=== PATIENT | male | born 1945 | race Caucasian/White ===

== ENCOUNTER → 2023-02-05 09:50 | Outpatient (CLI) | payer MEDICARE, SELFPAY ==
--- NOTE | 2023-02-05 09:52 | DI.RAD.S_ITS ---
PROCEDURE: XR LUMBAR SPINE MIN 4V INDICATIONS: BACK PAIN TECHNIQUE: 5 views of the lumbar spine were acquired, including bilateral oblique views. COMPARISON: None. FINDINGS: Bones: 5 nonrib-bearing vertebrae are present. Grade 1 anterolisthesis of L5 on S1 secondary to pars defects. Mild disc height loss at all levels. Facet arthrosis L4 through S1. Soft tissues: Overlying bowel gas pattern is normal. No suspicious soft tissue calcifications. Oblique images: No pars defects. IMPRESSION: No acute, displaced fracture or traumatic subluxation. Mild disc height loss at all levels. Lower lumbar facet arthrosis. Dictated by: Kemar Saunders M.D. on 02/05/2023 at 10:48 Approved by: Kemar Saunders M.D. on 02/05/2023 at 10:49
== END ==
PROVIDERS: PCP Internal Medicine; Referring Provider Physical Medicine & Rehabilitation; Visit Provider Physical Medicine & Rehabilitation
DX: M47.816 Spondylosis without myelopathy or radiculopathy, lumbar region (principal); M47.817 Spondylosis without myelopathy or radiculopathy, lumbosacral region; M43.17 Spondylolisthesis, lumbosacral region; M51.26 Other intervertebral disc displacement, lumbar region; M21.372 Foot drop, left foot; M54.9 Dorsalgia, unspecified; Z90.79 Acquired absence of other genital organ(s); Z92.3 Personal history of irradiation
CPT/HCPCS: 72110; 99214

== ENCOUNTER → 2023-02-16 10:28 | Outpatient (CLI) | payer MEDICARE, SELFPAY ==
--- NOTE | 2023-02-16 10:29 | DI.MRI.S_ITS ---
PROCEDURE: MR LUMBAR SPINE WO CON INDICATIONS: left foot drop, hx of prostate ca TECHNIQUE: Noncontrast sagittal T1 spin echo and T2 fast echo, sagittal STIR, and T2 fast spin echo through the lumbar spine. In cases with scoliosis, additional coronal T2 fast spin echo may be performed. COMPARISON: [facility], CR, XR LUMBAR SPINE MIN 4V, 02/05/2023, 10:01. [facility], MR, MR LUMBAR SPINE WITH/WITHOUT CONTRAST, 11/10/2020, 9:48. [facility], MR, MR LUMBAR SPINE WITH/WITHOUT CONTRAST, 09/23/2019, 16:31. FINDINGS: Image quality: Excellent. Alignment and Curvature: There is normal bony alignment. Bone Marrow: Numerous foci of abnormal marrow signal can be seen, with increased T1 weighted signal and increased T2 weighted signal, with decreased STIR signal. This can be seen from C4 through the sacrum, and is most compatible with fatty metaplasia. Within the posterior aspect of the L5 level, there is a focus seen that demonstrates decreased signal on T1 weighted T2 weighted imaging increased signal on STIR imaging, which is similar to 202. No acute vertebral body compression fractures. Spinal Cord: Conus medullaris terminates at the L1 level. Visualized cord demonstrates normal signal and size. Paraspinous Soft Tissues: No paravertebral masses. T12-L1: Normal appearance. L1-L2: Normal appearance. L2-L3: The disc height is well-preserved. Loss of disc signal is seen at this level. Mild to moderate disc osteophyte complex is seen. Moderate facet joint hypertrophy is seen. Moderate bilateral neural foraminal narrowing is seen. Moderate central canal narrowing is seen. These imaging findings have progressed compared to the prior study. L3-L4: Mild loss of disc height is seen. Loss of disc signal is seen. Moderate generalized disc bulge is seen. There is a mild superimposed central disc extrusion, with mild superior migration of disc material. Moderate facet joint hypertrophy is seen. Fluid is seen within the facet joints themselves. At least moderate bilateral neural foraminal narrowing can be seen. There is a degree of compression seen upon the exiting nerve roots. Moderate to severe central canal narrowing can be seen, as on series 5, image 21. These degenerative changes are worse than in 2021. L4-L5: The disc height is well-preserved. Loss of disc signal is seen at this level. Moderate generalized disc bulge is seen. There is a superimposed central disc protrusion. Moderate facet joint hypertrophy is seen. Associated hypertrophy of the ligamentum flavum can be seen. Moderate to severe bilateral neural foraminal narrowing can be seen, left worse than right. There is a degree of compression seen upon the exiting nerve roots. At least moderate central canal narrowing is seen. These imaging findings have progressed compared to the prior study. L5-S1: The disc height is well-preserved. Loss of disc signal is seen at this level. Moderate disc bulge is seen, which is eccentric to the left. Moderate facet joint hypertrophy is seen. Moderate bilateral neural foraminal narrowing is seen. Mild central When comparison is made with the prior images, these findings are similar. IMPRESSION: Multiple levels of lumbar spine degenerative change are seen, which are overall worst compared to 08/23/2020. Stable abnormal lesion along the posterior aspect of the L5 level, which is not significantly changed compared to 202 and may be related to a focus of metastatic disease. 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 Dictated by: Obi Davey M.D. on 02/17/2023 at 14:11 Approved by: Obi Davey M.D. on 02/17/2023 at 14:16
== END ==
PROVIDERS: PCP Internal Medicine; Referring Provider Physical Medicine & Rehabilitation; Visit Provider Physical Medicine & Rehabilitation
DX: M43.17 Spondylolisthesis, lumbosacral region (principal); M21.379 Foot drop, unspecified foot; M47.816 Spondylosis without myelopathy or radiculopathy, lumbar region; M47.817 Spondylosis without myelopathy or radiculopathy, lumbosacral region; M89.9 Disorder of bone, unspecified
CPT/HCPCS: 72148

== ENCOUNTER 2023-04-15 12:30 | Outpatient (CLI) | payer MEDICARE, SELFPAY ==
[2023-04-15] VITALS (8 sets, daily range): BP systolic 108–135; BP diastolic 61–74; PULSE 40–59; RESP 11–18; TEMP 36.1; O2SAT 96–100
--- NOTE | 2023-04-15 12:31 | DI.RAD.S_ITS ---
PROCEDURE: PAIN L/S TRANSFORAMINAL INJECT INDICATIONS: SPONDYLOSIS COMPARISON: None. FINDINGS: Fluoroscopic spot filming was performed to verify placement of spinal needles at the left L5-S1 neural foramen level(s), as labeled on the films. Appropriate location(s) of the needle tip(s) was confirmed by injection of iodinated contrast. IMPRESSION: Access needle at the left L4-L5 neural foramen for transforaminal epidural steroid injection. Dictated by: Michelle Mike MD, PhD on 04/15/2023 at 13:57 Approved by: Michelle Mike MD, PhD on 04/15/2023 at 13:57
[2023-04-15] MEDS: MIDAZOLAM 2 MG/2 ML VIAL 1 MG IV (13:35)
[2023-04-15] MEDS: BETAMETHASONE 30 MG/5 ML MDV 6 MG INJ (13:40)
[2023-04-15] MEDS: DEXAMETHASONE 10 MG/ML VIAL INJ (13:41)
[2023-04-15] MEDS: IOPAMIDOL 15 ML VIAL 3 ML INJ (13:41)
[2023-04-15] MEDS: BUPIVACAINE 0.25% (PF) VIAL 2 ML INJ (13:42)
--- NOTE | 2023-04-15 13:48 | P.PCN_ITS ---
Date/Time/Diagnoses Date of procedure: 04/15/23 Time of procedure: 13:48 Pre-procedure diagnosis: 1. FORAMINAL STENOSIS WITH LE SYMPTOMS Post-procedure diagnosis: same Procedure Notes Procedure: 1. FLUOROSCOPICALLY GUIDED CONTRAST CONTROLLED TRANSFORAMINAL EPIDURAL STEROID INJECTION - Left L5/S1 Indications: Stefano is referred by Dr. Chandler for treatment of Foraminal Stenosis with Left LE Symptoms Physician: Marco Antonio Valdes Total Fluoroscopy time (seconds): 10 Total sedation minutes: 11 Complications: none Procedure in detail & Post-procedure care: FINDINGS Foraminal Nerve Root Compression secondary to disc disease and facet hypertrophy DESCRIPTION OF PROCEDURE Following review of allergy and review of potential side effects and complications, including, but not necessarily limited to, infection, allergic reaction, local tissue breakdown, stroke, temporary or permanent nerve injury, paralysis, and possible , the patient indicated that the patient understood and agreed to proceed. An informed consent document was signed by the patient, witnessed by a nurse, and placed in the patient's chart. Additionally, other treatment options including medications, modalities, and physical therapy were reviewed with the patient. After review of previous anaesthesic history and IV conscious sedation the patient was deemed safe to proceed with today?s procedure with IV conscious sedation as ASA class II designation. Safety time-out was performed to confirm patient ID, procedure to be performed and site of procedure. IV sedation was accomplished with a combination of 1mg of Versed was administered by the RN after DO order, titrated to patient comfort during the course of the procedure while the patient remained responsive to all verbal commands In the prone position following sterile prep and drape of the lumbar region, the Left L5/S1 posterior neuroforamen was identified fluoroscopically. The skin was anesthetized via a 25-gauge 1.5-inch needle with 1% lidocaine solution. At this point, a 25-gauge 3.5-inch spinal needle was atraumatically introduced and advanced under fluoroscopic guidance through the posterior Left L5/S1 neuroforamen to approximately the anterior aspect of the canal. Depth was confirmed on lateral view. Following negative aspiration, injection of approximately 1.5cc of Isovue 200 under live fluoroscopy in the AP view confir med excellent flow along the nerve root, into the epidural space without vascular or intrathecal uptake observed Radiological data, including multiple fluoroscopic views of the lumbosacral spine, reveal a spinal needle at the left L5/S1 posterior neuroforamen. Subsequent views show flow of contrast material flowing superiorly and inferiorly along the nerve root confirming epidural flow. Subsequently, a test dose of 1.5 cc of 1% lidocaine solution was administered and patient was observed for two minutes for signs or symptoms of complications, including abdominal pain, shortness of breath, bilateral upper or lower extremity weakness, nausea and vomiting, prior to steroid injection. At this point, a total of 2cc or 10mg of dexamethasone and 6mg of betamethasone was injected without incident. The procedure tolerated the procedure well without signs or symptoms of complications prior to transfer to the recovery area continued monitoring without incident. The patient was then transferred to the recovery area where they were observed for an appropriate time after the injection. The patient reported a VAS score of 7 prior to the procedure and a post-procedure VAS of 0. POST OP INSTRUCTIONS The patient was provided a Pain Log to continue to record their response to the target-specific procedure prior to follow-up visit with their referring phy sician. Additionally, specific post-injection care instructions and a contact number to our office were provided if concerns arise regarding possible complications associated with the procedure are suspected.
== END 2023-04-15 14:11 | disposition home or self-care (01) ==
PROVIDERS: PCP Internal Medicine; Referring Provider Physical Medicine & Rehabilitation; Visit Provider Physical Medicine & Rehabilitation
DX: M48.07 Spinal stenosis, lumbosacral region (principal); M51.17 Intervertebral disc disorders with radiculopathy, lumbosacral region; M47.27 Other spondylosis with radiculopathy, lumbosacral region
CPT/HCPCS: 64483; 99152; J0702; J1100; J2250; J3490

== ENCOUNTER 2023-08-05 10:04 | Outpatient (CLI) | payer MEDICARE, SELFPAY ==
[2023-08-05] VITALS (8 sets, daily range): BP systolic 91–115; BP diastolic 59–74; PULSE 45–52; RESP 12–18; TEMP 36.4; O2SAT 95–100
--- NOTE | 2023-08-05 10:45 | DI.RAD.S_ITS ---
PROCEDURE: PAIN L/S TRANSFORAMINAL INJECT INDICATIONS: SPONDYLOSIS COMPARISON: [facility], , PAIN L/S TRANSFORAMINAL INJECT, 04/15/2023, 13:38. FINDINGS: Fluoroscopic spot filming was performed to verify placement of spinal needles at the left L4-L5 level(s), as labeled on the films. Appropriate location(s) of the needle tip(s) was confirmed by injection of iodinated contrast. IMPRESSION: Needle placement at left L4-L5 level with contrast injection. Dictated by: Thuy Shafer M.D. on 08/05/2023 at 11:49 Approved by: Thuy Shafer M.D. on 08/05/2023 at 11:50
[2023-08-05] MEDS: MIDAZOLAM 2 MG/2 ML VIAL 1 MG IV (11:05)
[2023-08-05] MEDS: iopamidoL 15 ML VIAL 3 ML INJ (11:07)
[2023-08-05] MEDS: BETAMETHASONE 30 MG/5 ML MDV 6 MG INJ (11:08)
[2023-08-05] MEDS: DEXAMETHASONE 10 MG/ML VIAL INJ (11:08)
[2023-08-05] MEDS: BUPIVACAINE 0.25% (PF) VIAL 2 ML INJ (11:08)
--- NOTE | 2023-08-05 11:23 | P.PCN_ITS ---
Date/Time/Diagnoses Date of procedure: 08/05/23 Time of procedure: 11:23 Pre-procedure diagnosis: 1. FORAMINAL STENOSIS WITH LE SYMPTOMS Post-procedure diagnosis: same Procedure Notes Procedure: 1. FLUOROSCOPICALLY GUIDED CONTRAST CONTROLLED TRANSFORAMINAL EPIDURAL STEROID INJECTION - LEFT L4/5 Indications: Stefano is referred by Dr. Chandler for treatment of Foraminal Stenosis with Left LE Symptoms Physician: Marco Antonio Valdes Total Fluoroscopy time (seconds): 12 Total sedation minutes: 10 Complications: none Procedure in detail & Post-procedure care: FINDINGS Foraminal Nerve Root Compression secondary to disc disease and facet hypertrophy DESCRIPTION OF PROCEDURE Following review of allergy and review of potential side effects and complications, including, but not necessarily limited to, infection, allergic reaction, local tissue breakdown, stroke, temporary or permanent nerve injury, paralysis, and possible , the patient indicated that the patient understood and agreed to proceed. An informed consent document was signed by the patient, witnessed by a nurse, and placed in the patient's chart. Additionally, other treatment options including medications, modalities, and physical therapy were reviewed with the patient. After review of previous anaesthesic history and IV conscious sedation the patient was deemed safe to proceed with today?s procedure with IV conscious sedation as ASA class II designation. Safety time-out was performed to confirm patient ID, procedure to be performed and site of procedure. IV sedation was accomplished with a combination of 1mg of Versed administered by the RN after DO order, titrated to patient comfort during the course of the procedure while the patient remained responsive to all verbal commands In the prone position following sterile prep and drape of the lumbar region, the left L4/5 posterior neuroforamen was identified fluoroscopically. The skin was anesthetized via a 25-gauge 1.5-inch needle with 1% lidocaine solution. At this point, a 25-gauge 3.5-inch spinal needle was atraumatically introduced and advanced under fluoroscopic guidance through the posterior left L4/5 neuroforamen to approximately the anterior aspect of the canal. Depth was confirmed on lateral view. Following negative aspiration, injection of approximately 1.5 cc of Isovue 200 under live fluoroscopy in the AP view confirmed excellent flow along the nerve root, into the epidural space without vascular or intrathecal uptake observed Radiological data, including multiple fluoroscopic views of the lumbosacral spine, reveal a spinal needle at the left L4/5 posterior neuroforamen. Subsequent views show flow of contrast material flowing superiorly and inferiorly along the nerve root confirming epidural flow. Subsequently, a test dose of 1.5 cc of 1% lidocaine solution was administered and patient was observed for two minutes for signs or symptoms of complications, including abdominal pain, shortness of breath, bilateral upper or lower extremity weakness, nausea and vomiting, prior to steroid injection. At this point, a total of 2cc or 10mg of dexamethasone and 6mg of betamethasone was injected without incident. The procedure tolerated the procedure well without signs or symptoms of complications prior to transfer to the recovery area continued monitoring without incident. The patient was then transferred to the recovery area where they were observed for an appropriate time after the injection. The patient reported a VAS score of 7 prior to the procedure and a post- procedure VAS of 0. POST OP INSTRUCTIONS The patient was provided a Pain Log to continue to record their response to the target-specific procedure prior to follow-up visit with their referring physician. Additionally, specific post-injection care instructions and a contact number to our office were provided if concerns arise regarding possible complications associated with the procedure are suspected.
--- NOTE | 2023-08-06 11:11 | PC.NURSE ---
Procedure follow up call: Spoke with Dom @ 1111 - doing well, he was out for a hike. No questions or concerns. Follow up appointment already scheduled. Encouraged to call the clinic for any issues that arise.
== END 2023-08-05 11:47 | disposition home or self-care (01) ==
PROVIDERS: PCP Internal Medicine; Referring Provider Physical Medicine & Rehabilitation; Visit Provider Physical Medicine & Rehabilitation
DX: M48.061 Spinal stenosis, lumbar region without neurogenic claudication (principal); M51.16 Intervertebral disc disorders with radiculopathy, lumbar region; M47.26 Other spondylosis with radiculopathy, lumbar region
CPT/HCPCS: 64483; 99152; J0702; J1100; J2250; J3490

== ENCOUNTER 2023-11-25 09:13 | Outpatient (CLI) | payer MEDICARE, SELFPAY ==
[2023-11-25] VITALS (8 sets, daily range): BP systolic 91–108; BP diastolic 51–69; PULSE 45–52; RESP 10–16; TEMP 36.2; O2SAT 94–100
--- NOTE | 2023-11-25 09:45 | DI.RAD.S_ITS ---
PROCEDURE: PAIN L/S TRANSFORAMINAL INJECT INDICATIONS: Left L4/5 TFESI COMPARISON: [facility], , PAIN L/S TRANSFORAMINAL INJECT, 08/05/2023, 12:07. FINDINGS: Fluoroscopic spot filming was performed to verify placement of spinal needles at the left L4-5 level(s), as labeled on the films. Appropriate location(s) of the needle tip(s) was confirmed by injection of iodinated contrast. IMPRESSION: Fluoroscopic guidance utilized for an epidural steroid injection at L4-5. Dictated by: Kemar Saunders M.D. on 11/25/2023 at 12:30 Approved by: Kemar Saunders M.D. on 11/25/2023 at 12:31
[2023-11-25] MEDS: MIDAZOLAM 2 MG/2 ML VIAL IV (10:21)
[2023-11-25] MEDS: DEXAMETHASONE 10 MG/ML VIAL INJ (10:24)
[2023-11-25] MEDS: BETAMETHASONE 30 MG/5 ML MDV 6 MG INJ (10:24)
[2023-11-25] MEDS: BUPIVACAINE 0.25% (PF) VIAL 2 ML INJ (10:25)
[2023-11-25] MEDS: iopamidoL 15 ML VIAL 3 ML INJ (10:25)
--- NOTE | 2023-11-25 10:35 | P.PCN_ITS ---
Date/Time/Diagnoses Date of procedure: 11/25/23 Time of procedure: 10:35 Pre-procedure diagnosis: 1. FORAMINAL STENOSIS WITH LE SYMPTOMS Post-procedure diagnosis: same Procedure Notes Procedure: 1. FLUOROSCOPICALLY GUIDED CONTRAST CONTROLLED TRANSFORAMINAL EPIDURAL STEROID INJECTION - LEFT L4/5 Indications: Stefano is referred by Dr. Chandler for treatment of Foraminal Stenosis with Left LE Symptoms Physician: Marco Antonio Valdes Total Fluoroscopy time (seconds): 15 Total sedation minutes: 11 Complications: none Procedure in detail & Post-procedure care: FINDINGS Foraminal Nerve Root Compression secondary to disc disease and facet hypertrophy DESCRIPTION OF PROCEDURE Following review of allergy and review of potential side effects and complications, including, but not necessarily limited to, infection, allergic reaction, local tissue breakdown, stroke, temporary or permanent nerve injury, paralysis, and possible , the patient indicated that the patient understood and agreed to proceed. An informed consent document was signed by the patient, witnessed by a nurse, and placed in the patient's chart. Additionally, other treatment options including medications, modalities, and physical therapy were reviewed with the patient. After review of previous anaesthesic history and IV conscious sedation the patient was deemed safe to proceed with today?s procedure with IV conscious sedation as ASA class II designation. Safety time-out was performed to confirm patient ID, procedure to be performed and site of procedure. IV sedation was accomplished with a combination of 2mg of Versed administered by the RN after DO order, titrated to patient comfort during the course of the procedure while the patient remained responsive to all verbal commands In the prone position following sterile prep and drape of the lumbar region, the left L4/5 posterior neuroforamen was identified fluoroscopically. The skin was anesthetized via a 25-gauge 1.5-inch needle with 1% lidocaine solution. At this point, a 25-gauge 3.5-inch spinal needle was atraumatically introduced and advanced under fluoroscopic guidance through the posterior left L4/5 neuroforamen to approximately the anterior aspect of the canal. Depth was confirmed on lateral view. Following negative aspiration, injection of approximately 1.5 cc of Isovue 200 under live fluoroscopy in the AP view confirmed excellent flow along the nerve root, into the epidural space without vascular or intrathecal uptake observed Radiological data, including multiple fluoroscopic views of the lumbosacral spine, reveal a spinal needle at the left L4/5 posterior neuroforamen. Subsequent views show flow of contrast material flowing superiorly and inferiorly along the nerve root confirming epidural flow. Subsequently, a test dose of 1.5 cc of 1% lidocaine solution was administered and patient was observed for two minutes for signs or symptoms of complications, including abdominal pain, shortness of breath, bilateral upper or lower extremity weakness, nausea and vomiting, prior to steroid injection. At this point, a total of 2cc or 10mg of dexamethasone and 6mg of betamethasone was injected without incident. The procedure tolerated the procedure well without signs or symptoms of complications prior to transfer to the recovery area continued monitoring without incident. The patient was then transferred to the recovery area where they were observed for an appropriate time after the injection. The patient reported a VAS score of 7 prior to the procedure and a post- procedure VAS of 0. POST OP INSTRUCTIONS The patient was provided a Pain Log to continue to record their response to the target-specific procedure prior to follow-up visit with their referring physician. Additionally, specific post-injection care instructions and a contact number to our office were provided if concerns arise regarding possible complications associated with the procedure are suspected.
== END 2023-11-25 10:51 | disposition home or self-care (01) ==
PROVIDERS: PCP Internal Medicine; Referring Provider Physical Medicine & Rehabilitation; Visit Provider Physical Medicine & Rehabilitation
DX: M48.061 Spinal stenosis, lumbar region without neurogenic claudication (principal); M51.16 Intervertebral disc disorders with radiculopathy, lumbar region; M47.26 Other spondylosis with radiculopathy, lumbar region
CPT/HCPCS: 64483; 99152; 99153; J0702; J1100; J2250; J3490

== ENCOUNTER → 2024-03-27 14:12 | Outpatient (CLI) | payer MEDICARE, SELFPAY ==
--- NOTE | 2024-03-27 14:13 | DI.MRI.S_ITS ---
PROCEDURE: MR LUMBAR SPINE WO CON INDICATIONS: spinal stenosis TECHNIQUE: Noncontrast sagittal T1 spin echo and T2 fast echo, sagittal STIR, and T2 fast spin echo through the lumbar spine. In cases with scoliosis, additional coronal T2 fast spin echo may be performed. COMPARISON: [facility], MR, MR LUMBAR SPINE WO CON, 02/16/2023, 10:37. FINDINGS: Image quality: Excellent. Alignment and Curvature: There is normal bony alignment. Bone Marrow: Persistent mild abnormal signal of the pelvis and sacrum, most likely post radiation change. Stable 1.3 x 1.4 centimeter lesion in the L5 vertebral body, without pathologic fracture. Spinal Cord: Conus medullaris terminates at the L1 level. Visualized cord demonstrates normal signal and size. Paraspinous Soft Tissues: No paravertebral masses. Simple appearing left renal cyst without complex features visualized. T12-L1: Disc desiccation. Mild disc height loss. L1-L2: Disc desiccation with mild disc height loss. Right facet effusion and bilateral mild facet hypertrophy. L2-L3: Disc desiccation with mild disc height loss. Facet effusions, ligamentum flavum hypertrophy, mild spinal canal narrowing. L3-L4: Disc desiccation with moderate disc height loss. Broad-based disc bulge, ligamentum flavum hypertrophy, facet hypertrophy and effusions. Severe spinal canal narrowing, progressed from prior. Moderate left and mild right neural foraminal narrowing. L4-L5: Disc desiccation, ligamentum flavum hypertrophy, facet hypertrophy, bilateral facet effusions, broad-based disc bulge. Severe spinal canal narrowing, progressed from prior. Moderate left and mild right neural foraminal narrowing. L5-S1: Disc desiccation, broad-based disc bulge, facet effusions, left greater than right and bilateral facet hypertrophy with mild ligamentum flavum hypertrophy. [id number] left and mild right neural foraminal narrowing. IMPRESSION: Progressive degenerative disc disease, with increased severe spinal canal narrowing at L3-4 and L4-5. Multilevel facet arthrosis, resulting in up to moderate neural foraminal narrowing at L3-4 and L4-5. Stable L5 bone lesion, presumably treated metastasis. No pathologic fracture. Dictated by: Kemar Saunders M.D. on 03/29/2024 at 9:57 Approved by: Kemar Saunders M.D. on 03/29/2024 at 10:03
== END ==
LOC: MRI 14:12
PROVIDERS: PCP Internal Medicine; Referring Provider Physical Medicine & Rehabilitation; Visit Provider Physical Medicine & Rehabilitation
DX: M43.17 Spondylolisthesis, lumbosacral region (principal); M51.36 Other intervertebral disc degeneration, lumbar region; M51.37 Other intervertebral disc degeneration, lumbosacral region; M48.061 Spinal stenosis, lumbar region without neurogenic claudication; M48.07 Spinal stenosis, lumbosacral region; M47.816 Spondylosis without myelopathy or radiculopathy, lumbar region; M47.817 Spondylosis without myelopathy or radiculopathy, lumbosacral region; M89.9 Disorder of bone, unspecified
CPT/HCPCS: 72148